=== PATIENT | female | born 2000 | race Caucasian/White ===

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

== ENCOUNTER 2021-01-29 15:28 | Emergency (ER) | payer OTHER, SELFPAY ==
[2021-01-29 15:32] VITALS: BP 146/77; PULSE 103; RESP 14; TEMP 37.2; O2SAT 98
--- NOTE | 2021-01-29 15:54 | ED.URI ---
HPI - URI/Sore Throat General Chief Complaint: Upper Respiratory Infection Stated Complaint: sore throat runny nose aches cough Source: patient and RN notes reviewed Mode of arrival: ambulatory History of Present Illness HPI Narrative: This is a 20-year-old female presented to urgent care with complaints of sore throat, cough, headache, body aches, ear fullness and shortness of breath that she has been having for the last 3 days. Patient is scheduled to take a Covid rapid on Monday. She does have a history of asthma does not have an inhaler. Patient will be treated for viral illness and given a prescription for albuterol due to her asthma history. the patient denies SOB, CP, palpitation, extremity numbness, lightheadedness, dizziness, constipation, diarrhea, chills, or fever. MD elicited complaint: cough, sore throat and nasal congestion Related Data Allergies Allergy/AdvReac Type Severity Reaction Status Date / Time cefdinir Allergy Unknown Unknown Verified 01/29/21 15:44 Review of Systems Review of Systems: A 14 organ system Review of Systems was performed and pertinent positives included in the HPI, otherwise remaining ROS is negative. [facility] Past Medical History Medical History Acquired skin tag Body mass index [BMI] pediatric, greater than or equal to 95th percentile for age (04/30/18) Cellulitis and abscess of unspecified site Dietary counseling and surveillance (10/26/15) Irregular menses Lump of left breast Mild intermittent asthma with exacerbation Morbid (severe) obesity due to excess calories Need for meningococcal vaccination Obesity (BMI 30-39.9) Routine sports physical exam Weight gain Surgical History Surgical History History of removal of skin mole Family History Family History Father No problems noted. Mother No problems noted. Sibling No problems noted. Other Acute myocardial infarction Cerebrovascular accident Diabetes mellitus Hypertension Social History Social History Smoking status: Never smoker Second hand tobacco smoke exposure: Yes Alcohol intake: never Substance use: never Additional occupation/education comments: [employer]. Gender identity (if verbalized by the patient): Female Exam Narrative: GENERAL: This is a well-nourished, well-developed patient, in no apparent distress. HEAD: normocephalic, atraumatic. EYES: PERRL. Sclera clear/white. Vision is grossly intact. EARS: External ears normal, auditory canals clear and without drainage, TMs normal without perforation. Hearing grossly intact. NOSE: External nose normal with no obvious nasal discharge, nares without redness, no rhinorrhea. THROAT: Mucous membranes moist, posterior pharynx clear. NECK: Neck supple, non-tender without lymphadenopathy, masses or thyromegaly. CARDIOVASCULAR: Regular rate and rhythm without murmurs, gallops, or rubs. RESPIRATORY: Clear to auscultation. Breath sounds equal bilaterally. No wheezes, rales, or rhonchi. GASTROINTESTINAL: Abdomen soft, non-tender, nondistended. Bowel sounds are active. No hepato-splenomegaly, or palpable masses. No guarding. SKIN: warm, intact with no suspicious lesions or rash, good texture and turgor. NEURO: awake, alert, and oriented to person, place and time. There were no obvious focal neurologic abnormalities. Steady gait EXTREMITIES: Normal range of motion. No edema. No calf tenderness. Negative Homans sign bilaterally. BACK: Nontender without deformity or crepitance. No flank tenderness. Cannot sounds Course Course Emergency Course: Patient will be treated for viral infection in instructed to take [id number] medications for symptoms Vital Signs Vital signs: Vital Signs Temperature 98.9 F
== END 2021-01-29 16:00 | disposition home or self-care (01) ==
PROVIDERS: Emergency Provider Nurse Practitioner; PCP Family Medicine
DX: B34.9 Viral infection, unspecified (principal); J45.909 Unspecified asthma, uncomplicated; E66.01 Morbid (severe) obesity due to excess calories
CPT/HCPCS: 87081; 87880; 99213; G0463

== ENCOUNTER 2021-03-25 11:55 | Outpatient (CLI) | payer OTHER, SELFPAY ==
--- NOTE | 2021-03-25 12:40 | ECG_ITS ---
Measurements Intervals [place] Rate: 80 P: 31 [place]: 141 QRS: 79 QRSD: 106 T: 33 QT: 366 QTc: 423 Interpretive Statements SINUS RHYTHM BASELINE WANDER- v2 NORMAL ECG Electronically Signed On 03-25-2021 13:15:01 [employer] by Fritz Godfrey D.O.
[2021-03-25 12:44] LABS: Hematocrit 44.6 % (37.0-47.0); Hemoglobin 14.7 g/dL (12.0-15.0); Mean Corpuscular Hemoglobin 29.8 pg (26-34); Mean Corpuscular Volume 90.3 fl (80-100); Mean Platelet Volume 9.8 fl (7.4-10.4); Platelet Count Result 380 k/mm3 (150-375); Red Blood Count 4.94 M/mm3 (4.2-5.4); Red Cell Distribution Width 12.1 % (11.5-14.5); White Blood Count 7.4 K/mm3 (4.5-10.0)
[2021-03-25 13:00] LABS: Alanine Aminotransferase 22 U/L (4-35); Albumin Level 4.7 g/dL (3.5-5.1); Alkaline Phosphatase 65 U/L (38-126); Anion Gap 11 mmol/L (8-16); Aspartate Amino Transferase 24 U/L (14-36); Bilirubin,Total 0.7 mg/dL (0.2-1.3); Blood Urea Nitrogen 10 mg/dL (7-17); Calcium 9.5 mg/dL (8.4-10.2); Carbon Dioxide 24 mmol/L (22-30); Chloride 104 mmol/L (98-107); Estimated Glomerular Filt Rate > 60; Glucose 98 mg/dL (65-110); Potassium 4.3 mmol/L (3.4-5.0); Sodium 139 mmol/L (137-145)
== END 2021-03-25 11:56 | disposition home or self-care (01) ==
LOC: ANHLAB 11:58
PROVIDERS: PCP Family Medicine; Visit Provider Nurse Practitioner Family
DX: R55 Syncope and collapse (principal)
CPT/HCPCS: 36415; 80053; 84443; 85027; 93005

== ENCOUNTER 2022-12-07 16:28 | Emergency (ER) | payer OTHER, SELFPAY ==
[2022-12-07 16:54] VITALS: BP 119/76; PULSE 90; RESP 16; TEMP 36.7; O2SAT 99
--- NOTE | 2022-12-07 16:57 | ED.ABDPAIN ---
HPI - Abdominal Pain General Chief Complaint: Abdominal Pain Stated Complaint: abdominal pain, nausea,diarrhea Time Seen by Provider: 12/07/22 16:57 Source: patient Mode of arrival: ambulatory Limitations: no limitations History of Present Illness HPI narrative: 22-year-old female presents with complaint of generalized abdominal pain, bloating, diarrhea for 6 days. Took a few doses of Imodium but was not helping so she quit. States that she is drinking plenty of fluids to prevent dehydration. Denies nausea vomiting. Afebrile. Patient is well-appearing, talkative and smiling. She states that she has had issues with her bowel since a young age. States that no doctors ever taking her seriously and that they told her that is because she is obese and needs to lose weight. She has never had any type of imaging or seen a GI specialist. Patient called her primary care physician today regarding abdominal pain and they made an appointment for her on December 21. Patient states she would like some type of CT imaging today to finally see what is wrong with her . Denies urinary symptoms. No URI symptoms. All systems reviewed and negative except as noted above. Related Data Allergies Allergy/AdvReac Type Severity Reaction Status Date / Time cefdinir Allergy Unknown Unknown Verified 12/07/22 16:56 Review of Systems Review of Systems: CONSTITUTIONAL: Denies fever, chills, or sweats. EYES: Denies visual changes, redness, or discharge. ENT: Denies rhinorrhea, congestion, sore throat, or otalgia. CARDIOVASCULAR: Denies chest pain, palpitations, or edema. RESPIRATORY: Denies cough or dyspnea. GASTROINTESTINAL: Reports abdominal pain, , diarrhea. Denies nausea, vomiting, constipation and blood in stool. GENITOURINARY: Denies dysuria or hematuria. SKIN: Denies rash or itching. MUSCULOSKELETAL: Denies back pain, joint pain, or myalgia. NEUROLOGIC: Denies headache, numbness, or weakness. PSYCHIATRIC: Denies anxiety or depression. All other systems reviewed are negative, except as documented in HPI. [facility] Past Medical History Medical History Acquired skin tag Body mass index (BMI) of 40.1 to 44.9 in adult Body mass index [BMI] pediatric, greater than or equal to 95th percentile for age (02/11/19) Cellulitis and abscess of unspecified site Dietary counseling and surveillance (10/26/15) Irregular menses Lump of left breast Mild intermittent asthma with exacerbation Morbid (severe) obesity due to excess calories Need for meningococcal vaccination Obesity (BMI 30-39.9) Routine sports physical exam Weight gain Surgical History Surgical History History of removal of skin mole Family History Family History Father No problems noted. Mother No problems noted. Sibling No problems noted. Other Acute myocardial infarction Cerebrovascular accident Diabetes mellitus Hypertension Social History Social History Second hand tobacco smoke exposure: Yes Alcohol intake: current Substance use: current Substance use type: marijuana Living arrangements: with family Occupation/Education: occupation Additional occupation/education comments: [employer]. Gender identity (if verbalized by the patient): Female Comments At time of signature, agree with nursing past medical, surgical, social and family history. There is no relevant family history pertinent to the presenting complaint. Exam Narrative: GENERAL: This is a well-nourished, well-developed patient, in no apparent distress. HEAD: normocephalic, atraumatic. EYES: PERRL. Sclera clear/white. Vision is grossly intact. EARS: External ears normal NOSE: External nose normal NECK: Neck supple, non-tender without lymphadenopathy, masses or thyrom
[2022-12-07 16:58] VITALS: BP 119/76; PULSE 90; RESP 16; TEMP 36.7; O2SAT 99
== END 2022-12-07 17:36 | disposition home or self-care (01) ==
PROVIDERS: Emergency Provider Nurse Practitioner Family; PCP Family Medicine
DX: R10.84 Generalized abdominal pain (principal); R19.7 Diarrhea, unspecified; J45.909 Unspecified asthma, uncomplicated; E66.01 Morbid (severe) obesity due to excess calories; Z68.39 Body mass index [BMI] 39.0-39.9, adult; F12.90 Cannabis use, unspecified, uncomplicated
CPT/HCPCS: 99213; G0463

== ENCOUNTER 2023-06-28 10:41 | Outpatient (CLI) | payer OTHER, SELFPAY ==
--- NOTE | 2023-06-28 11:30 | NEURO_ITS ---
Impression: # Complains of numbness of hands. # Subtle evolving Carpal Tunnel Syndrome. # No ulnar neuropathy. # Normal needle/EMG exam including proximal muscles. # Clinical correlation recommended. Nerve Conduction Studies Anti Sensory Summary Table Stim Site NR Peak (ms) P-T Amp (?V) Site1 Site2 Delta-P (ms) Dist (cm) Karthik (m/s) Left Median Anti Sensory (2-3nd Digit) Wrist 3.1 29.8 Wrist 2-3nd Digit 3.1 14.0 45 Wrist 3.3 27.6 Wrist 2-3nd Digit 3.1 14.0 45 Right Median Anti Sensory (2-3nd Digit) Wrist 3.0 75.9 Wrist 2-3nd Digit 3.0 14.0 47 Wrist 2.6 71.2 Wrist 2-3nd Digit 3.0 14.0 47 Left Radial Anti Sensory (Base 1st Digit) Wrist 1.5 26.1 Wrist Base 1st Digit 1.5 0.0 Right Radial Anti Sensory (Base 1st Digit) Wrist 2.0 34.2 Wrist Base 1st Digit 2.0 0.0 Left Ulnar Anti Sensory (5th Digit) Wrist 2.2 92.8 Wrist 5th Digit 2.2 14.0 64 Right Ulnar Anti Sensory (5th Digit) Wrist 2.0 90.6 Wrist 5th Digit 2.0 14.0 70 Motor Summary Table Stim Site NR Onset (ms) O-P Amp (mV) Site1 Site2 Delta-0 (ms) Dist (cm) Karthik (m/s) Left Median Motor (Abd Poll Brev) Wrist 2.7 4.9 Elbow Wrist 4.9 28.0 57 Elbow 7.6 3.2 Right Median Motor (Abd Poll Brev) Wrist 3.5 4.3 Elbow Wrist 4.2 26.0 62 Elbow 7.7 4.3 Left Ulnar Motor (Abd Dig Minimi) Wrist 2.0 8.3 A Elbow Wrist 4.6 29.0 63 A Elbow 6.6 7.3 Right Ulnar Motor (Abd Dig Minimi) Wrist 2.0 8.3 A Elbow Wrist 4.6 29.0 63 A Elbow 6.6 7.3 F Wave Studies NR F-Lat (ms) L-R F-Lat (ms) Left Median (Mrkrs) (Abd Poll Brev) 24.78 0.33 Right Median (Mrkrs) (Abd Poll Brev) 24.45 0.33 Left Ulnar (Mrkrs) (Abd Dig Min) 23.85 0.61 Right Ulnar (Mrkrs) (Abd Dig Min) 23.24 0.61 EMG Side Muscle Nerve Root Ins Act Fibs Amp Dur Recrt Comment Right 1stDorInt Ulnar C8-T1 Nml Nml Nml Nml Nml Right Ext Indicis Radial (Post Int) C7-8 Nml Nml Nml Nml Nml Right Ext Digitorum Radial (Post Int) C7-8 Nml Nml Nml Nml Nml Right BrachioRad Radial C5-6 Nml Nml Nml Nml Nml Right PronatorTeres Median C6-7 Nml Nml Nml Nml Nml Right Abd Poll Brev Median C8-T1 Nml Nml Nml Nml Nml Right ABD Dig Min Ulnar C8-T1 Nml Nml Nml Nml Nml Left 1stDorInt Ulnar C8-T1 Nml Nml Nml Nml Nml Left Ext Indicis Radial (Post Int) C7-8 Nml Nml Nml Nml Nml Left Ext Digitorum Radial (Post Int) C7-8 Nml Nml Nml Nml Nml Left BrachioRad Radial C5-6 Nml Nml Nml Nml Nml Left PronatorTeres Median C6-7 Nml Nml Nml Nml Nml Left Abd Poll Brev Median C8-T1 Nml Nml Nml Nml Nml Left ABD Dig Min Ulnar C8-T1 Nml Nml Nml Nml Nml Right Biceps Musculocut C5-6 Nml Nml Nml Nml Nml Right Triceps Radial C6-7-8 Nml Nml Nml Nml Nml Right Deltoid Axillary C5-6 Nml Nml Nml Nml Nml Left Biceps Musculocut C5-6 Nml Nml Nml Nml Nml Left Triceps Radial C6-7-8 Nml Nml Nml Nml Nml Left Deltoid Axillary C5-6 Nml Nml Nml Nml Nml MTDD
== END 2023-06-28 10:42 | disposition home or self-care (01) ==
PROVIDERS: PCP Family Medicine; Visit Provider Orthopaedic Surgery
DX: G56.00 Carpal tunnel syndrome, unspecified upper limb (principal)
CPT/HCPCS: 95886; 95911